=== PATIENT | male | born 1955 | race Caucasian/White ===

== ENCOUNTER → 2024-08-21 12:56 | Outpatient (REF) | payer MEDICARE, OTHER, SELFPAY | LOC: EMG 12:56 | PROVIDERS: ATTENDING PHYSICIAN Orthopaedic Surgery; FAMILY PHYSICIAN Family Medicine | DX: G56.03 Carpal tunnel syndrome, bilateral upper limbs (principal) | CPT/HCPCS: 95886; 95912 ==

== ENCOUNTER → 2024-08-21 14:30 | Outpatient (REF) | payer MEDICARE, OTHER, SELFPAY | LOC: DHSLP 14:30 | PROVIDERS: ATTENDING PHYSICIAN Family Medicine | DX: G47.33 Obstructive sleep apnea (adult) (pediatric) (principal); R09.02 Hypoxemia | CPT/HCPCS: 95800 ==

== ENCOUNTER 2024-11-05 17:46 | Inpatient (IN) | payer MEDICARE, OTHER, SELFPAY ==
[2024-11-05] VITALS (13 sets, daily range): BP systolic 123–159; BP diastolic 76–96; BMI 32.4; BMI 31.8
[2024-11-05 09:07] LABS: % Basophils 0.1 % (0-2); % Eosinophils 0.2 % (0-6); % Immature Granulocytes 0.4 % (0-0.5); % Lymphocytes 9.7 % (20.5-51.1); % Monocytes 6.6 % (1.7-9.3); Absolute Immature Granulocytes 0.1 10^3/uL (0-0.05); Absolute Lymphocytes 1.3 10^3/uL (1.2-3.4); Absolute Monocytes 0.9 10^3/uL (0.1-0.6); Absolute Neutrophils 10.8 10^3/uL (1.4-6.5); Hematocrit 41.5 % (39.0-52.0); Hemoglobin 15.3 g/dL (13.0-18.0); Mean Corp Hgb Conc. 36.9 g/dL (33.0-37.0); Mean Corpuscular Hgb 32.2 pg (27.0-31.0); Mean Corpuscular Volume 87.4 fL (80.0-94.0); Nucleated Red Blood Cells % 0 % (-); Platelet Count 150 10^3/uL (130-400); Red Blood Cell Count 4.75 10^6/uL (4.70-6.10); Red Cell Dist. Width 11.5 % (11.5-14.5)
[2024-11-05 09:24] LABS: ALT (SGPT) 37 U/L (0-50); AST (SGOT) 30 U/L (17-59); Albumin 4.3 g/dl (3.5-5.0); Alkaline Phosphatase 74 U/L (38-126); Blood Urea Nitrogen 10 mg/dl (9-20); Calcium 9.1 mg/dl (8.4-10.2); Carbon Dioxide 21 mmol/L (22-30); Chloride 99 mmol/L (98-107); Glucose 139 mg/dl (70-99); Potassium 4.1 mmol/L (3.5-5.1); Sodium 133 mmol/L (135-145); Total Bilirubin 2.1 mg/dl (0.2-1.3); Total Protein 6.9 g/dl (6.3-8.2); eGFR > 60.00
--- NOTE | 2024-11-05 10:47 | ED.GENMED ---
History of Present Illness
General
Chief Complaint: Bowel Problem
Time Seen by Provider: 11/05/24 10:14
History of Present Illness
History of Present Illness:
69-year-old male presents to the emergency department for evaluation of constipation for the past 8 days. He reports no bowel movements, no passage of liquid or flatus during that time as well. Having increasing abdominal pain without the urge to
defecate. Notes that he has been on semaglutide for the past 6 months and his dose was increased approximately 1 month ago. Vomiting over the past 2 days. Not on any chronic narcotics. No prior abdominal surgical history
Review of Systems
Review of Systems
Allergies reviewed?: Yes
All Other Systems: ROS reviewed and negative except as documented in HPI and ROS
Phy Exam
Physical Exam
Physical Exam:
GEN: Well appearing, NAD, WDWN
HEENT: Oral mucosa moist, no scleral icterus
Cardiac: Regular rate
Lung: No respiratory distress, no tachypnea
Abdomen: Soft, diffuse tenderness to all 4 quadrants, no rigidity
Rectal: No stool in the rectal vault
MSK: No gross deformity or injuries
Skin: Good color, no pallor or jaundice, no rashes
Neuro: AO x3, moves all extremities freely
Psych: Calm, cooperative
Course
Orders/Labs/Results
Orders:
Orders
11/05/24 09:00
Complete Blood Count/With Diff Urgent
Comprehensive Metabolic Panel Urgent
Lipase Urgent
Comment: ADD ON
11/05/24 10:38
CT Abd/Pel (IV only)-DH only Urgent
Comment:
Reason For Exam: abd pain, constipation
0.9% Sodium Chloride 1000 ml [Nss] 1,000 ml IV BOLUS
11/05/24 12:04
Add On- LAB Urgent
Tests Added?: lipase
11/05/24 14:42
HYDROmorphone [Dilaudid] 0.5 mg IV NOW STA
Lactated Ringers [Lr] 1,000 ml IV BOLUS
Abnormal Lab Results
11/05/24
09:00
WBC 13.0 H 10^3/uL
(4.8-10.8)
MCH 32.2 H pg
(27.0-31.0)
Abs Immat Gran (auto) 0.1 H 10^3/uL
(0-0.05)
Absolute Neuts (auto) 10.8 H 10^3/uL
(1.4-6.5)
Absolute Monos (auto) 0.9 H 10^3/uL
(0.1-0.6)
Neutrophils % 83.0 H %
(42.2-75.2)
Lymphocytes % 9.7 L %
(20.5-51.1)
Sodium 133 L mmol/L
(135-145)
Carbon Dioxide 21 L mmol/L
(22-30)
Glucose 139 H mg/dl
(70-99)
Total Bilirubin 2.1 H mg/dl
(0.2-1.3)
Lipase 1611 H* U/L
(23-300)
11/05/24 09:00
11/05/24 09:00
Vital Signs
Initial and Last Documented VS:
Initial Vital Signs
Temp Pulse Resp BP Pulse Ox
97.7 F 92 16 128/79 98
11/05/24 08:52 11/05/24 08:52 11/05/24 08:52 11/05/24 08:52 11/05/24 08:52
Last Documented Vital Signs
Temp Pulse Resp BP Pulse Ox
97.7 F 92 16 148/84 97
11/05/24 08:52 11/05/24 08:52 11/05/24 08:52 11/05/24 13:00 11/05/24 13:00
MDM/Problems Addressed
MDM/Problems Addressed:
69-year-old male presents with generalized abdominal pain and constipation. Initial rectal exam unrevealing thus we pursued a CT scan which revealed acute pancreatitis, subsequent lipase enzyme congruent with acute pancreatitis. Will admit for IV
fluids and analgesics, likely due to semaglutide use
*Critical Care Note
Total Time (30-74mins, 75-104mins- exclusive of procedures): Not Applicable
ED Attending Note
-
Portions of this chart may have been created with voice recognition software.� Occasional wrong word or��sound alike� substitutions may have occurred due to the inherent limitations of voice recognition software.
Discharge Plan
Departure
Patient Disposition: Admit
Date of Disposition: 11/05/24
Time of Disposition: 14:42
Admit to: Med/Surg
Presentation/result/management discussed w/ accepting MD/DO: Hospitalist
Discharge Problem:
Acute pancreatitis
Referrals:
Fransico Peralta MD [Family Provider] -
Interventions
Interventions:
*Risk Screen - Suicide Last Done: 11/05/24 08:52
*General Assessment Last Done: 11/05/24 11:10
*Neglect/Abuse Screening Last Done: 11/05/24 08:52
ED- Fall Risk Assessment Last Done: 11/05/24 11:10
*ED COVID-19 Vaccine History Last Done: 11/05/24 10:27
CW-Lcqxkb-Oyegnxebwd Assessment Last Done: 11/05/24 10:27
Discharge Date and Time
Print Language: VIETNAMESE
[2024-11-05] MEDS: NSS 1000 IV ×2 (11:10→19:50)
[2024-11-05 14:34] LABS: Lipase 1611 U/L (23-300)
[2024-11-05] MEDS: LR 1000 IV (14:55)
[2024-11-05] MEDS: DILAUDID 0.5 MG IV ×2 (14:55→19:59)
--- NOTE | 2024-11-05 18:01 | HPS.HSE ---
Addendum entered and electronically signed by David Pete MD 11/05/24 22:32:
Attending Addendum-
I performed a history and physical exam of the patient and discussed his management with the resident. I reviewed the resident's note and agree with the documented findings and plan of care CC/HPI- presents to ed secondary to abd pain N/V poor
appetite and constipation/obstipation x @ 4-5 days. and n/v. Recent treated for bacterial infection with amoxicillin per patient completed abx on Sunday. Recently started on semaglutide and dose increased.. Abd pain LLQ improved with narcs rad to
scapula. Full 12 point ROS reviewed and negative except as documented Exam- vitals reviewed in EMR GEN-NAD heart RRR lungs clear abd soft no rebound guarding TTP LLQ LE no edema
# Acute Pancreatitis
- lipase 1611
- CT 11/05-Mild peripancreatic fluid and stranding concerning for acute pancreatitis.
Moderate fecal material throughout the colon.
Mild diverticulosis.
- start aggressive IVF
- check covid
- possible due to semaglutide- HOLD
- pain control with IV meds
- NPO
- repeat lipase in am
# HTN
- hold ramipril and metoprolol
- add prn IV meds
# HLD
- hold atorva for now
# Hyponatremia
- hypovolemic
- start IVF
- repeat BMP in am
ACP
Patient consented to discuss, was alone, time spent explanation of advance directives, changes in health status, patient�s health care wishes if the patient becomes unable to make health decisions, goals of care, code status, and prognosis- 16
minutes
Time spent coordinating care, review of plan of care with resident, personally reviewed previous records in EMR, med rec, labs, radiology, d/w nursing, family total time documented is exclusive of any additional time listed that was spent in advance
care planning discussion -� 79 minutes
Original Note:
Family Physician
-
Family Physician: Fransico Peralta MD
Chief Complaint
-
Abdominal Pain and Constipation
History of Present Illness
Mr. Condon is a 69-year-old male with a past medical history of hypertension, hyperlipidemia, arthritis, and obesity who presented to the emergency department today for abdominal pain and constipation. Patient states that he was started on
semaglutide for weight loss approximately 10 weeks ago and around this time started to feel a vague discomfort in his abdomen. The patient's dosage was expectedly increased every 4 weeks, however, after the latest dosage increase approximately 2
weeks ago, the patient's abdominal discomfort progressed to abdominal pain. Additionally, patient states that he has not had a bowel movement in approximately 8 days despite Ex-Lax. Additionally, patient endorses not passing flatus for
approximately 4 to 5 days. Patient notes, that the abdominal pain progressively worsened over the last few days. He describes the pain as a stabbing, constant pain that is worse with sudden movement (such as hiccuping). Patient states the
location the pain is right and left upper quadrants with radiation to the intrascapular area. Patient states that at its worst, the pain is 8 out of 10 in severity, however it is alleviated by vomiting and becomes a 6 out of 10. Pain at the time
of this interview is much improved after IV pain medication. Patient additionally endorses loss of appetite, nausea, and vomiting over the past 2 days. Patient describes the vomiting as 'liquid 'as he has not had anything to eat in this time.
Patient denies bloody or bilious vomiting.
Patient also notes a recent respiratory infection which necessitated use of amoxicillin. Patient recently completed this course of antibiotics.
ED course revealed a diffusely tender abdomen, white blood cell count of 13K, total bilirubin of 2.1, and a lipase of 1611. CT abdomen and pelvis revealed mild peripancreatic fluid and stranding concerning for acute pancreatitis.
Medical History
Past Medical History
Past Medical History: Reports Other
Additional Past Medical History:
Hypertension, hyperlipidemia, arthritis, obesity
Past Surgical History: Reports Other (Back surgery, carpal tunnel surgery)
Social History
Tobacco: Non-smoker
Alcohol: Occasional
Drug: None
Personal:
Living: With Family
Employment: Employed
Family History
Family History: Not pertinent
Allergies / Home Medications
Allergies reflects when Allergies were last updated in [email or web address].
Home Medications with original date entered in [email or web address]
Allergy/Medication List:
No known drug allergies.
Home medications: Metoprolol 25 mg p.o. daily, ramipril 2.5 mg p.o. daily, atorvastatin 10 mg p.o. daily, meloxicam (dosage unknown) as needed
Review of Systems
-
A 12 point ROS was completed and negative except as noted: Yes
Physical Exam
Vital Signs
Vital Signs
Temp Pulse Resp BP Pulse Ox
97.7 F 92 16 140/82 96
11/05/24 08:52 11/05/24 08:52 11/05/24 08:52 11/05/24 17:00 11/05/24 17:15
Physical Exam
General: Well Developed, Well Nourished, No Apparent Distress, Comfortable and Conversant
HEENT: NormoCephalic, Anicteric and Moist mucous membranes
Respiratory: Clear and Non Labored Respirations
Cardiac: S1/S2 and Regular Rhythm
GI: Soft, Non Distended, Normal Bowel Sounds and Tender (moderate tenderness in the LUQ, LLQ; nontender in the epigastrium, RUQ, RLQ; no guarding or rebound)
Musculoskeletal: No Clubbing, No Cyanosis and No Edema
Skin: Warm
Neuro: Awake, Alert and Oriented
Psych: Calm
Laboratory Results
-
11/05/24 09:00
11/05/24 09:00
Laboratory Results
Total Bilirubin 2.1 mg/dl (0.2-1.3) H 11/05/24 09:00
AST 30 U/L (17-59) 11/05/24 09:00
ALT 37 U/L (0-50) 11/05/24 09:00
Alkaline Phosphatase 74 U/L (38-126) 11/05/24 09:00
Lipase 1611 U/L (23-300) H* 11/05/24 09:00
Data Reviewed
-
CT Scan: Report Reviewed by me and Discussed with Patient
Lab Data: Labs Reviewed by me and Discussed with Patient
Impression/Plan
-
# Acute pancreatitis
- CT abdomen/pelvis (11/05/2024): Mild peripancreatic fluid/stranding concerning for acute pancreatitis.
- Lipase (11/05/2024): 1611
- IVF: NS at 200 mL/h
- N.p.o. until pain-free; okay to hold home medications until then.
- Right upper quadrant ultrasound to rule out gallstone pancreatitis
- Triglyceride level
- Pain control
- Repeat lipase in a.m.
- CBC/CMP in a.m.
- IV Zofran as needed for nausea
# Constipation
- CT abdomen/pelvis: Moderate stool burden
- Bisacodyl 10 mg daily rectally
- Monitor bowel movements, flatus
# Hypertension
- Hold p.o. home medications for now
- IV hydralazine for SBP greater than 140
# Obesity
- Patient's last dose was 11/03/2024; next dose not expected until 11/10/2024.
- Side effect of this medication must be considered as cause of pancreatitis.
# Hyperlipidemia
- Hold atorvastatin until patient able to eat.
- Hold ASA until patient able to eat.
Full code/Lovenox/n.p.o.
PCP: Esther Peralta
[2024-11-05] MEDS: DULCOLAX 10 MG RECTAL (19:45)
[2024-11-05] MEDS: LOVENOX 40 MG SC (19:59)
[2024-11-05] MEDS: APRESOLINE 5 MG IV (20:00)
[2024-11-05] MEDS: ZOFRAN 4 MG IV (20:06)
[2024-11-05 21:37] LABS: Triglycerides 93 mg/dl (10-149)
[2024-11-05 23:20] LABS: COVID-19 Antigen Negative (Negative)
[2024-11-06] MEDS: NSS 1000 IV ×5 (00:51→22:11)
[2024-11-06] MEDS: DILAUDID 0.5 MG IV ×2 (00:52→22:15)
[2024-11-06 01:32] LABS: Urine Albumin Negative (Neg - Trace); Urine Bilirubin Negative (Negative); Urine Character Clear (Clear); Urine Color Yellow; Urine Glucose Negative (Negative); Urine Ketone 3+ (Negative); Urine Leukocyte Negative (Negative); Urine Nitrite Negative (Negative); Urine Occult Blood Negative (Negative); Urine Urobilinogen Negative (Neg - 1+); Urine pH 6.5 (5.0-9.0)
[2024-11-06 07:15] VITALS: BP 118/67
[2024-11-06 08:14] LABS: Hematocrit 38.1 % (39.0-52.0); Hemoglobin 14.1 g/dL (13.0-18.0); Mean Corpuscular Volume 89.2 fL (80.0-94.0); Mean Platelet Volume 9.5 fL (7.4-10.4); Platelet Count 138 10^3/uL (130-400); Red Blood Cell Count 4.27 10^6/uL (4.70-6.10); Red Cell Dist. Width 11.7 % (11.5-14.5); White Blood Cell Count 12.8 10^3/uL (4.8-10.8)
[2024-11-06 09:04] LABS: ALT (SGPT) 27 U/L (0-50); AST (SGOT) 24 U/L (17-59); Albumin 3.7 g/dl (3.5-5.0); Alkaline Phosphatase 63 U/L (38-126); Blood Urea Nitrogen 10 mg/dl (9-20); Calcium 8.3 mg/dl (8.4-10.2); Carbon Dioxide 22 mmol/L (22-30); Chloride 101 mmol/L (98-107); Estimated Creatinine Clearance > 125 ml/min; Glucose 102 mg/dl (70-99); Lipase 489 U/L (23-300); Sodium 135 mmol/L (135-145); Total Bilirubin 1.9 mg/dl (0.2-1.3); Total Protein 6.1 g/dl (6.3-8.2); eGFR > 60.00
[2024-11-06 09:30] LABS: HDL Cholesterol 47 mg/dl; LDL Cholesterol, Calculated 57 mg/dl; Total Cholesterol 122 mg/dl (50-199); Triglyceride 91 mg/dl (10-149); Very Low Density Lipoprotein 18 mg/dl (0-30)
--- NOTE | 2024-11-06 09:56 | W.PN.HOSP.TC ---
Addendum entered and electronically signed by David Pete MD 11/06/24 19:48:
Attending Addendum-I saw and evaluated the patient. I reviewed the resident�s note and agree with findings and plan as documented in the resident�s note. Sub: abd pain improved. feels thirsty. appetite starting to come back had small bm yesterday.
No N/V. Full 12 point ROS reviewed and negative except as documented Exam- vitals reviewed in EMR GEN-NAD heart RRR lungs clear abd soft no rebound guarding minimal LLQ LE no edema
# Acute Pancreatitis
- lipase 1611->489
- CT 11/05-Mild peripancreatic fluid and stranding concerning for acute pancreatitis.
Moderate fecal material throughout the colon.
Mild diverticulosis.
- RUQ US 11/06-Normal appearance of the gallbladder. No evidence for biliary ductal dilation. Fatty infiltration of the liver.
- cont aggressive IVF
- check covid-neg
- possible due to semaglutide- HOLD
- pain control with IV meds
- TG WNL
- NPO->advance to clears
# HTN
- restart ramipril and metoprolol
- cont prn IV meds
# Leukocytosis
- resolving
# HLD
- hold atorva for now
- LDL 57
- restart on dc
# Hyponatremia
- resolved
- cont IVF
- repeat BMP in am
Dispo- DC in am if eileen clears
Time spent coordinating care, review of plan of care with resident, personally reviewed records in EMR, med rec, consults, notes, labs, radiology, d/w nursing � 55 mins
Original Note:
Today's Communication/Plan
-
.
Assessment / Plan
Assessment / Plan
# Acute pancreatitis
- CT abdomen/pelvis (11/05/2024): Mild peripancreatic fluid/stranding concerning for acute pancreatitis.
- Lipase (11/05/2024): 1611
- Repeat Lipase (11/06/2024): 489
- IVF: continue NS at 200 mL/h
- NPO until pain free; okay to hold home medications until then.
- RUQ US (09/06/25): no evidence of gallstones
- TG 93 TC 122 LDL 57 VLDL 18 HDL 47 (nml)
- Pain control as needed
- CBC/CMP in AM
- IV Zofran as needed for nausea
# Constipation
- CT abdomen/pelvis: Moderate stool burden
- Bisacodyl 10 mg daily rectally
- Monitor bowel movements, flatus
- 1 bowel movement last night, liquid
# Hypertension
- Hold p.o. home medications for now
- IV hydralazine for SBP greater than 140
# Obesity
- Patient's last dose was 11/03/2024; next dose not expected until 11/10/2024.
- Side effect of this medication must be considered as cause of pancreatitis. Other potential causes include NSAID, viral, ACEI.
# Hyperlipidemia
- Hold atorvastatin until patient able to eat.
- Hold ASA until patient able to eat.
Full code/Lovenox/n.p.o.
PCP: Esther Peralta
Anticipated Discharge: 24 - 48 hours
Subjective/Interval History
-
Date of Service: November 06, 2024
Patient seen and examined while sitting up from chair, just returned from his ultrasound. Patient states that he is feeling a little bit better today. He rates his abdominal pain a 5/10 and improved, and a 0/10 after pain medication administration.
Patient states that he still does not have an appetite, however notes that he was able have a bowel movement (described as liquid, denies blood) after rectal suppository.
Objective Data
-
Labs:
Laboratory Results
11/06/24
07:03
WBC 12.8 H
Hgb 14.1
Hct 38.1 L
Plt Count 138
Sodium 135
Potassium 4.0
Chloride 101
Carbon Dioxide 22
BUN 10
Creatinine 0.7
Glucose 102 H
Calcium 8.3 L
Total Bilirubin 1.9 H
AST 24
ALT 27
Alkaline Phosphatase 63
Vital Signs:
Vital Signs
Temp Pulse Resp BP Pulse Ox
98 F 96 20 118/67 95
11/06/24 07:15 11/06/24 07:15 11/06/24 07:15 11/06/24 07:15 11/06/24 07:15
Review of Systems
-
Constitutional: Reports No Appetite; Denies Fever
Respiratory: Reports No Symptoms
Cardiac: Reports No Symptoms
Abdomen/GI: Reports Abdominal Pain; Denies Vomiting or Diarrhea
Neuro: Reports No Symptoms
Physical Exam
-
General: Well Developed, Well Nourished, No Apparent Distress, Comfortable and Conversant; Negative Fever
HEENT: Normocephalic, Atraumatic and Moist Mucous Membranes
Respiratory: Clear to Auscultation
Cardiac: Regular Rhythm and S1/S2
GI: Soft and Tender (mildly tender to palpation inthe LUQ, LLQ, improved from yesterday, other gutierrez soft, nondistended with no guarding or rebound tenderness)
Musculoskeletal: No Clubbing, No Cyanosis and No Edema
Skin: Warm and Dry
Neuro: Awake, Alert and Oriented
Psych: Calm
Data Reviewed
-
Ultrasound: Report Reviewed by me
Labs: Labs Reviewed by me and Discussed with Patient
[2024-11-06 15:03] VITALS: BP 112/68
[2024-11-06] MEDS: LOVENOX SC (17:11)
[2024-11-06 23:50] VITALS: BP 125/69
[2024-11-07] MEDS: NSS 1000 IV (03:15)
[2024-11-07 07:00] VITALS: BP 135/70
[2024-11-07 08:37] LABS: Hematocrit 32.9 % (39.0-52.0); Hemoglobin 11.8 g/dL (13.0-18.0); Mean Corp Hgb Conc. 35.9 g/dL (33.0-37.0); Mean Corpuscular Hgb 32.6 pg (27.0-31.0); Mean Corpuscular Volume 90.9 fL (80.0-94.0); Mean Platelet Volume 9.3 fL (7.4-10.4); Platelet Count 106 10^3/uL (130-400); Red Blood Cell Count 3.62 10^6/uL (4.70-6.10); Red Cell Dist. Width 11.7 % (11.5-14.5); White Blood Cell Count 8.8 10^3/uL (4.8-10.8)
[2024-11-07 09:14] LABS: ALT (SGPT) 20 U/L (0-50); AST (SGOT) 21 U/L (17-59); Albumin 3.1 g/dl (3.5-5.0); Alkaline Phosphatase 57 U/L (38-126); Blood Urea Nitrogen 9 mg/dl (9-20); Calcium 7.8 mg/dl (8.4-10.2); Carbon Dioxide 25 mmol/L (22-30); Chloride 103 mmol/L (98-107); Estimated Creatinine Clearance > 125 ml/min; Glucose 105 mg/dl (70-99); Potassium 3.6 mmol/L (3.5-5.1); Sodium 135 mmol/L (135-145); Total Bilirubin 2.2 mg/dl (0.2-1.3); Total Protein 5.4 g/dl (6.3-8.2); eGFR > 60.00
[2024-11-07] MEDS: NSS IV (09:35)
[2024-11-07 15:52] VITALS: BP 122/64
--- NOTE | 2024-11-07 19:40 | W.PN.HOSP.TC ---
Addendum entered and electronically signed by David Pete MD 11/07/24 22:17:
Attending Addendum-I saw and evaluated the patient. I reviewed the resident�s note and agree with findings and plan as documented in the resident�s note. Sub: feels great after eating solid food. Seen with present. Wants to go home. No N/V.
Full 12 point ROS reviewed and negative except as documented Exam- vitals reviewed in EMR GEN-NAD heart RRR lungs clear abd soft no rebound guarding NT LE no edema
# Acute Pancreatitis
- resolved
- lipase 1611->489
- CT 11/05-Mild peripancreatic fluid and stranding concerning for acute pancreatitis.
Moderate fecal material throughout the colon.
Mild diverticulosis.
- RUQ US 11/06-Normal appearance of the gallbladder. No evidence for biliary ductal dilation. Fatty infiltration of the liver.
- check covid-neg
- possible due to semaglutide- DC never to take again
- pain control with IV meds
- TG WNL
- tolerating PO
# HTN
- restart ramipril and metoprolol
# Leukocytosis
- resolved
# HLD
- LDL 57
- restart on dc
# Hyponatremia
- resolved
Dispo- DChome with
Time spent coordinating care, DC planning, review of DC plan of care with resident, transition of care, review of records, med rec/scripts sent electronically, consults, notes, d/w consultants, nursing, family/, and CM�32 mins
Original Note:
Today's Communication/Plan
-
.
Assessment / Plan
Assessment / Plan
# Acute pancreatitis
- CT abdomen/pelvis (11/05/2024): Mild peripancreatic fluid/stranding concerning for acute pancreatitis.
- Lipase (11/05/2024): 1611
- Repeat Lipase (11/06/2024): 489
- Discontinue IVF; advance diet as tolerated prior to DC
- Restart home medications on DC
- RUQ US (09/06/25): no evidence of gallstones
- TG 93 TC 122 LDL 57 VLDL 18 HDL 47 (nml)
# Constipation
- CT abdomen/pelvis: Moderate stool burden
- Bisacodyl 10 mg daily rectally
- Monitor bowel movements, flatus
- 3 more bowel movements last night, liquid
# Hypertension
- Continue home meds on d/c
# Obesity
- Patient's last dose was 11/03/2024; next dose not expected until 11/10/2024.
- Side effect of this medication must be considered as cause of pancreatitis. Other potential causes include NSAID, viral, ACEI.
- Patient states that he will likely discontinue this medication. Advised to speak with PCP.
# Hyperlipidemia
- Restart home meds on d/c
# L Hand Swelling
- Likely secondary to IV infiltration
- Nontender, nonerythematous, normal temperature
- Advised to keep extremity elevated
Discharge to home today.
Full code/Lovenox/n.p.o.
PCP: Esther Peralta
Anticipated Discharge: Today
Subjective/Interval History
-
Date of Service: November 07, 2024
Patient seen and examined in the AM. Patient states that he is feeling much better today. Patient states that his abdominal pain has markedly improved since admission. Additionally, he is tolerating his diet well, is passing gas and having bowel
movements. Patient notes some swelling to his left hand.
Objective Data
-
Labs:
Laboratory Results
11/07/24
07:52
WBC 8.8
Hgb 11.8 L
Hct 32.9 L
Plt Count 106 L D
Sodium 135
Potassium 3.6
Chloride 103
Carbon Dioxide 25
BUN 9
Creatinine 0.7
Glucose 105 H
Calcium 7.8 L
Total Bilirubin 2.2 H
AST 21
ALT 20
Alkaline Phosphatase 57
Vital Signs:
Vital Signs
Temp Pulse Resp BP Pulse Ox
98.9 F 75 14 122/64 96
11/07/24 15:52 11/07/24 15:52 11/07/24 15:52 11/07/24 15:52 11/07/24 15:52
I&O
11/06/24 11/07/24 11/08/24
06:59 06:59 06:59
Intake Total 240 / 240 960 / 960
Balance 240 / 240 960 / 960
Review of Systems
-
History Source: Patient
Constitutional: Reports No Symptoms
Respiratory: Reports No Symptoms
Cardiac: Reports No Symptoms
Abdomen/GI: Reports No Symptoms
Neuro: Reports No Symptoms
Physical Exam
-
General: Well Developed, Well Nourished, No Apparent Distress and Comfortable
HEENT: Normocephalic, Atraumatic and Anicteric
Respiratory: Clear to Auscultation
Cardiac: Regular Rhythm and S1/S2
GI: Soft, Nontender, Nondistended and Normal Bowel Sounds
Musculoskeletal: No Clubbing, No Cyanosis and Edema, Left Upper Extrem (specifically the left hand, likely secondary to IV infiltration following aggressive rehydration)
Skin: Warm and Dry
Neuro: Awake, Alert and Oriented
Psych: Calm
Data Reviewed
-
Labs: Labs Reviewed by me and Discussed with Patient
--- NOTE | 2024-11-07 19:46 | W.DCSUMMARY ---
Addendum entered and electronically signed by David Pete MD 11/07/24 22:17:
Read, reviewed, and agree. See same day progress note for additional details.
Colten Pete MD
Original Note:
Documented by User: Estuardo Sanchez DO, Resident 11/07/24 19:53
Discharge Summary
Discharge Data
Date of Admission: 11/05/24
Date of Discharge: 11/07/24
-
Pending Results: No
Hospital Course
Guillermo Condon is a 72-year-old male with a past medical history of hypertension, hyperlipidemia, arthritis, and obesity who presented to the emergency department at [facility] on 11/05/2024 for abdominal pain and constipation. The patient
stated that he was recently started on semaglutide for weight loss approximately 10 weeks ago and around this time and started to notice a vague discomfort in his abdomen. The patient's dosage was expectedly increased every 4 weeks, however, after
the latest dosage increase approximately 2 weeks ago, the patient's abdominal discomfort progressed to abdominal pain additionally, the patient states that he had not had a bowel movement in approximately 8 days prior to arrival despite the use of
Ex-Lax. Additionally, the patient endorsed that he had not been passing flatus for approximately 4 to 5 days prior to arrival. The abdominal pain continued to progressively worsen over the next 2 days. The pain was described as a stabbing
constant pain that was worse with sudden movement (such as with hiccuping). The location of the pain was in the right and left upper quadrants with radiation to the intrascapular area. Patient additionally endorsed loss of appetite, nausea, and
vomiting of water and undigested food over the 2 days prior to arrival.
In the emergency department the patient had a diffusely tender abdomen, a white blood cell count of 13K, a total bili early Jerry of 2.1, and a lipase of 1611. CT of the abdomen and pelvis revealed a mild [place] pancreatic fluid and stranding
concerning for acute pancreatitis. The patient was admitted to [facility] that evening for evaluation and treatment of acute pancreatitis.
The patient was kept n.p.o. for the next 36 hours and aggressively hydrated with normal saline at 200 mL/h. Repeat lipase the morning after admission had dropped down to 400. A right upper quadrant ultrasound to rule out gallstone pancreatitis did
not reveal any stones. The patient's triglyceride level was normal. Additionally, the patient was given a suppository for his constipation. This produced for bowel movements over the course of the next 36 hours. The bowel movements were
described as liquid. As the patient's clinical condition improved, patient's diet was advanced as tolerated and by the afternoon of 11/07/2024 the patient was tolerating a full liquid diet. The patient was discharged to home with instructions to
advance his diet slowly and only as tolerated. The patient was instructed to follow-up with his primary care physician for follow-up of this admission, and shared decision making regarding the patient's use of semaglutide.
Discharge Plan
-
Patient Disposition: Home (Routine Discharge)
Discharge Diagnosis/Procedures: Acute Pancreatitis
Condition: Fair
Diet: Other diet
Additional Diets: Resume diet slowly as tolerated.
Activity: As tolerated
Referrals:
Fransico Peralta MD [Family Provider] - in less than 1 week
Prescriptions:
Continued
atorvastatin 10 mg tablet
10 mg PO DAILY
ramipril 2.5 mg capsule
2.5 mg PO DAILY
aspirin 81 mg Tablet,Chewable
81 mg PO DAILY
metoprolol succinate 25 mg tablet extended release 24 hr
25 mg PO DAILY
bisacodyl 5 mg Tablet
10 mg PO DAILYPRN PRN (Reason: consitpation)
Held
meloxicam 15 mg tablet
15 mg PO DAILY
Hold Instructions: Hold until seen by primary care provider.
semaglutide (weight loss) 0.25 mg/0.5 mL Pen Injector
0.75 mg SC MO
Hold Instructions: Hold Until Seen by Primary Care Provider
Discharge Orders:
Discharge Patient (As Directed); Ordered 11/07/24
Ordered By: Estuardo Sanchez
Discharge Date and Time
Discharge Date/Time: 11/07/24 16:31
Print Language: VENEZUELAN

Documented by User: David Pete MD 11/07/24 22:14
Discharge Summary
Discharge Data
Date of Admission: 11/05/24
Date of Discharge: 11/07/24
Discharge Plan
-
Patient Disposition: Home (Routine Discharge)
Discharge Diagnosis/Procedures: Acute Pancreatitis
Condition: Fair
Diet: Other diet
Additional Diets: Resume diet slowly as tolerated.
Activity: As tolerated
Referrals:
Fransico Peralta MD [Family Provider] - in less than 1 week
Prescriptions:
Continued
atorvastatin 10 mg tablet
10 mg PO DAILY
ramipril 2.5 mg capsule
2.5 mg PO DAILY
aspirin 81 mg Tablet,Chewable
81 mg PO DAILY
metoprolol succinate 25 mg tablet extended release 24 hr
25 mg PO DAILY
bisacodyl 5 mg Tablet
10 mg PO DAILYPRN PRN (Reason: consitpation)
Held
meloxicam 15 mg tablet
15 mg PO DAILY
Hold Instructions: Hold until seen by primary care provider.
semaglutide (weight loss) 0.25 mg/0.5 mL Pen Injector
0.75 mg SC MO
Hold Instructions: Hold Until Seen by Primary Care Provider
Discharge Orders:
Discharge Patient (As Directed); Ordered 11/07/24
Ordered By: Estuardo Sanchez
Discharge Date and Time
Discharge Date/Time: 11/07/24 16:31
Print Language: VENEZUELAN
== END 2024-11-07 16:31 | disposition home or self-care (01) | DRG 439 ==
LOC: 4 EAST ACU 17:46
PROVIDERS: Emergency Medicine; ADMITTING PHYSICIAN Family Medicine; EMERGENCY PHYSICIAN Emergency Medicine; FAMILY PHYSICIAN Student in an Organized Health Care Education/Training Program
DX: K85.30 Drug induced acute pancreatitis without necrosis or infection (principal); E87.1 Hypo-osmolality and hyponatremia; T38.3X5A Adverse effect of insulin and oral hypoglycemic [antidiabetic] drugs, initial encounter; K59.00 Constipation, unspecified; I10 Essential (primary) hypertension; E78.5 Hyperlipidemia, unspecified; M19.90 Unspecified osteoarthritis, unspecified site; K57.30 Diverticulosis of large intestine without perforation or abscess without bleeding; E66.9 Obesity, unspecified; Z79.85 Long-term (current) use of injectable non-insulin antidiabetic drugs; Z68.32 Body mass index [BMI] 32.0-32.9, adult; Z11.52 Encounter for screening for COVID-19
CPT/HCPCS: 74177; 76700; 80053; 80061; 81003; 83690; 84478; 85025; 85027; 87040; 87811; 96361; 96374; 99285; Q9967